=== PATIENT | female | born 1985 | race Two or more races ===

== ENCOUNTER 2024-11-22 15:31 | Emergency (ER) | payer OTHER ==
[~2024-11-22] VITALS: Ht 165.1 cm; Wt 72.1 kg
[2024-11-22] MEDS ORDERED: ORPHENADRINE CITRATE 30 MG/ML AMPUL ONE (17:14)
[2024-11-22] MEDS ORDERED: ORPHENADRINE CITRATE 30 MG/ML AMPUL IM ONE (17:15)
[2024-11-22] MEDS ORDERED: KETOROLAC TROMETHAMINE 60 MG VIAL IM ONE ×2 (17:15)
[2024-11-22 17:34] LABS: BASO % 0.2 % (0.1-1.2); EOS # 0.02 (0.04-0.54); EOS % 0.2 % (0.7-7.0); LYMPH # 1.48 (1.18-3.74); LYMPH % 14.7 % (19.3-53.1); MEAN PLATELET VOLUME 10.20 fl (9.4-12.4); MONO # 0.83 (0.24-0.82); MONO % 8.2 % (4.7-12.5); NEUT # 7.70 (1.56-6.13); NEUT % 76.5 % (34.0-71.1); RED CELL DISTRIBUTION WIDTH 13.0 % (11.6-14.4)
[2024-11-22 18:10] LABS: URINE BILIRRUBIN SMALL (NEGATIVE); URINE BLOOD MODERATE; URINE GLUCOSE NEGATIVE (NEGATIVE); URINE KETONE 15 (NEGATIVE); URINE LEUKOCYTE NEGATIVE; URINE NITRATE NEGATIVE; URINE PROTEIN NEGATIVE (NEGATIVE); URINE UROBILINOGEN 0.2 E.U./dl
[2024-11-22 18:12] LABS: ALT/SGPT 17.0 U/L (12-78); AST/SGOT 9.0 U/L (15-37); BILIRUBIN TOTAL 0.43 mg/dL (0.3-1.2); BUN CREA RATIO 31.0 (7.0-25.0); CREATININE SERUM 0.61 mg/dL (0.55-1.02); GFR 108.09; GLOBULINA 4.6 G/DL (2.4-3.5); GLUCOSE FASTING 103.0 mg/dL (65-100); OSMOLALITY SERUM 280.0 MOSM/KG (275-295)
[2024-11-22 18:56] LABS: URINE APPEARANCE SL CLOUDY; URINE COLOR YELLOW
[2024-11-22 18:57] LABS: URINE BACTERIA FEW; URINE CRYSTALS NEGATIVE /HPF; URINE MUCUS HEAVY; URINE WBC 0-2 /hpf
[2024-11-22] MEDS ORDERED: NORFLEX100MG PO (19:36)
== END 2024-11-22 19:44 | disposition home or self-care (01) ==
LOC: ER 15:31
PROVIDERS: General Practice
DX: R10.2 Pelvic and perineal pain (principal)

== ENCOUNTER 2024-11-25 07:28 | Outpatient (CLI) | payer OTHER ==
[~2024-11-25 07:28] MED LIST: NORFLEX100MG PO
== END 2024-11-25 07:37 | disposition home or self-care (01) ==
LOC: MRI 07:28
DX: N83.201 Unspecified ovarian cyst, right side (principal)
CPT/HCPCS: 72196